=== PATIENT | female | born 1970 | race Caucasian/White ===

== ENCOUNTER → 2017-07-15 | Outpatient (CLI) | payer BC ==
--- NOTE | 2017-07-15 11:27 | US ---
EXAMINATION TYPE: US abdomen complete DATE OF EXAM: 07/15/2017 COMPARISON: NONE CLINICAL HISTORY: R10.11 RUQ PAIN. EXAM MEASUREMENTS: Liver Length: 10.7 cm Gallbladder Wall: 0.1 cm CBD: 0.5 cm Spleen: 9.7 cm Right Kidney: 12.9 x 4.1 x 5.9 cm Left Kidney: 12.5 x 5.3 x 5.1 cm Pancreas: wnl Liver: wnl Gallbladder: wnl Evidence for sonographic Rutherford's sign: no CBD: wnl Spleen: wnl Right Kidney: cyst measuring 2.8 x 1.8 x 2.5cm Left Kidney: wnl Upper IVC: wnl Abd Aorta: bifurcation obscured by overlying bowel gas, otherwise wnl The liver is homogenous. The intrahepatic portion of the IVC and proximal abdominal aorta are within normal limits. There is no evidence of cholelithiasis. Common bile duct is unremarkable. The visu alized portions of the pancreas are homogenous. The spleen is unremarkable. Kidneys are symmetric a nd free of hydronephrosis. Simple appearing cyst right kidney. No solid renal lesions. IMPRESSION: 1. Simple cyst left kidney. Otherwise unremarkable study.
== END | disposition home or self-care (01) ==
LOC: RADUSWWP 10:21
PROVIDERS: ATTEND Family Medicine
DX: N28.1 Cyst of kidney, acquired (principal)
CPT/HCPCS: 76700

== ENCOUNTER → 2017-07-24 | Outpatient (CLI) | payer BC ==
--- NOTE | 2017-07-24 10:24 | NM ---
EXAMINATION TYPE: NM hepatobiliary w EF DATE OF EXAM: 07/24/2017 COMPARISON: NONE HISTORY: Right upper quadrant pain TECHNIQUE: After the intravenous administration of 5.36 mCi Tc 99m Mebrofenin hepatobiliary scintigra phy is performed. Immediate images post injection. FINDINGS: There is satisfactory initial accumulation of tracer by the liver. The gallbladder is visualized wit hin 18 minutes. The small bowel activity is noted within 14 minutes. At one hour 8 ounces of oral e nsure plus is given to mimic CCK and gallbladder ejection fraction is calculated at 75 %, in the norm al range. Therefore there is no scintigraphic evidence of cystic or common bile duct obstruction to suggest acute cholecystitis or gallbladder dyskinesia. IMPRESSION: NORMAL NUCLEAR MEDICINE HEPATOBILIARY SCAN WITH EJECTION FRACTION CALCULATION.
== END | disposition home or self-care (01) ==
LOC: RADNMMAIN 06:56
PROVIDERS: ATTEND Family Medicine
DX: R10.11 Right upper quadrant pain (principal)
CPT/HCPCS: 78226; A9537

== ENCOUNTER → 2017-08-19 | Outpatient (CLI) | payer BC ==
--- NOTE | 2017-08-19 15:40 | US ---
EXAMINATION TYPE: US thyroid st tissue head/neck DATE OF EXAM: 08/19/2017 COMPARISON: 12/26/2015 CLINICAL HISTORY: E04.1 Thyroid Nodule. GLAND SIZE: Right Lobe: 4.7 x 1.4 x 1.4 cm Overall Parenchyma: homogenous Left Lobe: 5.7 x 2.4 x 3.2 cm Overall Parenchyma: heterogeneous Isthmus Thickness: 0.4 cm NODULES RIGHT: # of nodules measured on right: 0 LEFT: # of nodules measured on left: 1 1. 5.1 X 2.5 x 3.1 cm isoechoic solid nodule at the entire lobe pole with well-defined margins; . This nodule is wider than tall and shows intranodular vascularity. Prior size: 5.3 x 3.0 x 2.7 cm ISTHMUS: # of nodules measured in the isthmus: 0 Bilateral neck scanned, no evidence of lymphadenopathy. stable nodule IMPRESSION: Stable thyroid ultrasound
== END | disposition home or self-care (01) ==
LOC: RADUSWWP 15:03
PROVIDERS: ATTEND Family Medicine
DX: E04.1 Nontoxic single thyroid nodule (principal)
CPT/HCPCS: 76536

== ENCOUNTER 2018-10-02 12:19 | Observation (INO) | payer BC ==
--- NOTE | 2018-10-02 12:48 | ED ---
Chest Pain HPI - General Chief Complaint: Chest Pain Stated Complaint: CHEST PAIN Time Seen by Provider: 10/02/18 12:38 Source: patient, RN notes reviewed, old records reviewed Mode of arrival: wheelchair Limitations: no limitations - History of Present Illness Initial Comments: Patient is a 48-year-old female presents emergency department today with 1 week of episodes of chest pain. Patient reports that seems to be a dull ache symptoms times to be worsening. Patient reports it's gotten worse over the past 1-2 hours before arriving here. Patient has had no known fevers or chills. She reports a significant cough. Patient states that she has had some palpitations and feelings with the worse. Patient is a smoker. Family history of heart disease. She is not diabetic and takes no medication for high blood pressure. She states that she has no nausea or vomiting. She does report occasional tingling down the arm. This time she rates her pain a 1 out of 10. - Related Data Home Medications Medication Instructions Recorded Confirmed Ibuprofen [Motrin] 800 mg PO TID PRN 10/02/18 10/02/18 Allergies Allergy/AdvReac Type Severity Reaction Status Date / Time ceftriaxone [From Rocephin] Allergy Rash/Hives Verified 10/02/18 13:57 cephalexin [From Keflex] Allergy Rash/Hives Verified 10/02/18 13:57 Penicillins Allergy Rash/Hives Verified 10/02/18 13:57 adhesive AdvReac SEE Verified 10/02/18 13:57 COMMENTS Review of Systems ROS Statement: Those systems with pertinent positive or pertinent negative responses have been documented in the HPI. ROS Other: All systems not noted in ROS Statement are negative. EKG Findings - EKG Comments: EKG Findings:: EKG performed at 1250 shows R sinus rhythm with possible left atrial enlargement. Incomplete right bundle-branch block. Prolonged QT. Abnormal EKG noted. Ventricular rate of 84 bpm. MS interval is 166 ms. QRS duration 112 ms. QT QTc is 420/496 ms. No evidence of ST elevation or T-wave inversions. Past Medical History Past Medical History: No Reported History History of Any Multi-Drug Resistant Organisms: None Reported Additional Past Surgical History / Comment(s): LEEP, 2 rt knee 1 lt surgery, lumpectomy effie breast Past Psychological History: Anxiety Smoking Status: Current every day smoker Past Alcohol Use History: None Reported Past Drug Use History: None Reported General Exam - General Exam Comments Initial Comments: Patient is a 48-year-old female. Alert and oriented. Patient appears in no significant distress. General: Well appearing, well nourished, in no distress. Oriented x 3, normal mood and affect . Ambulating without difficulty. Skin: Good turgor, no rash, unusual bruising or prominent lesions Hair: Normal texture and distribution. HEENT: Head: Normocephalic, atraumatic, no visible or palpable masses, depressions, or scaring. Eyes: Visual acuity intact, conjunctiva clear, sclera non-icteric, EOM intact, PERRL. Ears: EACs clear, TMs translucent & cone of light visualized. hearing intact. Nose: No external lesions, mucosa non-inflamed, septum and turbinates normal Mouth: Mucous membranes moist, no mucosal lesions. Teeth/Gums: No obvious caries or periodontal disease. No gingival inflammation or significant resorption. Pharynx: Mucosa non-inflamed, no tonsillar hypertrophy or exudate Neck: Supple, without lesions, bruits, or adenopathy, thyroid non-enlarged and non-tender Heart: No cardiomegaly or thrills; regular rate and rhythm, no murmur or gallop Lungs: Clear to auscultation and percussion Abdomen: Bowel sounds normal, no tenderness, organomegaly, masses, or hernia Back: Spine normal without deformity or tenderness, no CVA tenderness Extremities: No amputations or deformities, cyanosis, edema or varicosities, peripheral pulses intact Musculoskeletal: Normal gait and station. No misalignment, asymmetry, crepitation, defects, tenderness, masses, effusions, decreased range of motion, instability, atrophy or abnormal strength or tone in the head, neck, spine, ribs , pelvis or extremities. Neurologic: CN 2-12 normal. Sensation to pain, touch, and proprioception normal. DTRs normal in upper and lower extremities. No pathologic reflexes. Psychiatric: Oriented X3, intact recent and remote memory, judgment and insight , normal mood and affect. Limitations: no limitations Course Vital Signs 10/02/18 10/02/18 10/02/18 12:28 12:44 12:47 Temperature 98.2 F Pulse Rate 89 82 Pulse Rate [ 82 Apical] Respiratory 18 18 Rate Blood Pressure 130/80 136/88 O2 Sat by Pulse 99 96 Oximetry 10/02/18 10/02/18 10/02/18 12:50 13:00 13:10 Temperature Pulse Rate 83 85 Pulse Rate [ Apical] Respiratory 22 20 Rate Blood Pressure 136/88 136/88 126/78 O2 Sat by Pulse 97 97 Oximetry 10/02/18 10/02/18 10/02/18 13:20 13:30 13:40 Temperature Pulse Rate 79 85 82 Pulse Rate [ Apical] Respiratory 16 20 20 Rate Blood Pressure 119/67 119/67 116/76 O2 Sat by Pulse 96 Oximetry 10/02/18 10/02/18 10/02/18 13:50 14:00 14:10 Temperature Pulse Rate 77 84 87 Pulse Rate [ Apical] Respiratory 7 L 20 18 Rate Blood Pressure 116/76 116/76 125/70 O2 Sat by Pulse 97 95 95 Oximetry 10/02/18 14:20 Temperature Pulse Rate 73 Pulse Rate [ Apical] Respiratory 18 Rate Blood Pressure 125/70 O2 Sat by Pulse 98 Oximetry Chest Pain MDM - MDM 48-year-old female, history of smoking, and family history of heart disease presents today with chest pain. She reports his been off and on for the past week. Worse over the past few hours prior to arrival. This time patient's EKG shows no significant changes. There is no ST changes. She also reports she's been having some L rotation. At this time patient's troponin and d-dimer and blood work was up so negative. Patient at this time was offered admission for further cardiology workup. Patient agrees to admission. Consult to cardiology. I discussed the case with Dr. Vasquez from [facility]. Chest x- rays negative for any acute process. Disposition Clinical Impression: Chest pain Disposition: ADMITTED IP TO THIS HOSP Condition: Stable Is patient prescribed a controlled substance at d/c from ED?: No Referrals: Chavez Tran MD [Primary Care Provider] - 1-2 days Time of Disposition: 14:44
[2018-10-02] MEDS ORDERED: SODIUM CHLORIDE 0.9% 1,000 ML IV ONE (12:59)
[2018-10-02 13:15] LABS: Basophils # (A) 0.1 k/uL (0-0.2); Basophils % (A) 1 %; Eosinophils # (A) 0.1 k/uL (0-0.7); Eosinophils % (A) 1 %; HGB 14.3 gm/dL (11.4-16.0); Lymphocytes # (A) 2.2 k/uL (1.0-4.8); Lymphocytes % (A) 28 %; MCH 30.2 pg (25.0-35.0); MCHC 32.4 g/dL (31.0-37.0); MCV 93.1 fL (80.0-100.0); Mean Platelet Volume 6.6; Monocytes # (A) 0.4 k/uL (0-1.0); Monocytes % (A) 5 %; Neutrophils # (A) 5.1 k/uL (1.3-7.7); Neutrophils % (A) 64 %; Platelet Count 236 k/uL (150-450); RBC 4.72 m/uL (3.80-5.40); RDW 13.4 % (11.5-15.5)
--- NOTE | 2018-10-02 13:18 | XR ---
EXAMINATION TYPE: XR chest 2V DATE OF EXAM: 10/02/2018 COMPARISON: NONE TECHNIQUE: PA and lateral views submitted. HISTORY: Chest pain FINDINGS: The lungs are clear and there is no pneumothorax, pleural effusion, or focal pneumonia. Hyperinflat ion suggests COPD. No overt failure. Hypertrophic change of the vertebral column. IMPRESSION: 1. No acute process.
[2018-10-02] MEDS: SODIUM CHLORIDE 0.9% 1,000 ML IV SCH ×2 (13:20→20:39)
[2018-10-02 13:25] LABS: ALT 20 U/L (9-52); AST 18 U/L (14-36); Alkaline Phosphatase 54 U/L (38-126); Amylase 46 U/L (30-110); Anion Gap 7 mmol/L; Blood Urea Nitrogen 9 mg/dL (7-17); Calcium 9.3 mg/dL (8.4-10.2); Carbon Dioxide 22 mmol/L (22-30); Chloride 109 mmol/L (98-107); Glucose 90 mg/dL (74-99); Lipase 35 U/L (23-300); Magnesium 1.8 mg/dL (1.6-2.3); Potassium 3.8 mmol/L (3.5-5.1); Sodium 138 mmol/L (137-145); Total Bilirubin 0.7 mg/dL (0.2-1.3); Total Protein 6.9 g/dL (6.3-8.2)
[2018-10-02 13:33] LABS: Creatine Kinase 119 U/L (30-135)
[2018-10-02 13:46] LABS: Troponin I <0.012 ng/mL (0.000-0.034)
[2018-10-02 13:49] LABS: D-Dimer 0.33 mg/L FEU (<0.60); Partial Thromboplastin Time 23.8 sec (22.0-30.0); Prothrombin Time 9.5 sec (9.0-12.0)
[2018-10-02 13:53] LABS: Creatine Kinase MB 0.3 ng/mL (0.0-2.4)
[2018-10-02] MEDS ORDERED: NITROGLYCERIN SL TABS 0.4 MG TAB SUBLINGUAL PRN (14:44)
[2018-10-02] MEDS ORDERED: IBUPROFEN 800 MG TAB PO PRN (14:48)
[2018-10-02] MEDS ORDERED: ACETAMINOPHEN TAB 325 MG TAB PO PRN (17:28)
[2018-10-02] MEDS ORDERED: LORazepam 0.5 MG TAB PO PRN (17:28)
[2018-10-02] MEDS ORDERED: NALOXONE 0.4 MG/ML 1 ML VIAL IV PRN (17:28)
[2018-10-02] MEDS ORDERED: MORPHINE SULFATE 2 MG/ML SYRINGE IV PRN (17:28)
--- NOTE | 2018-10-02 17:33 | P.HPIM ---
History of Present Illness H&P Date: 10/02/18 Chief Complaint: Chest pain 48-year-old female with PMH of asthma, goiter and anxiety presents to the ED for chest pain. Patient reports the chest pain started 1 week ago. Initially was intermittent but then became constant. Pain is left-sided, described as tightness and a "warm feeling" associated with palpitations. Her symptoms got progressively worse and intensified today prompting her to come to the ED. Pain is 1-2 out of 10 in severity at this time. Patient reports the pain radiating solid through to the back. Patient's dates that the pain is aggravated with anxiety and stress. There is no alleviating factors. Of note, patient also reports generalized fatigue and difficulty sleeping at this time. She is under multiple stressors at this time. Patient reports smoking 1-1-1/2 pack of cigarettes daily since 8 years old. She denies any alcohol or illicit drugs. She denies any headaches, lower extremity edema, nausea, vomiting, fever, shortness of breath, changes in urination or bowel habits. No changes in appetite or weight. In the ED, CBC was unremarkable. Coagulation panel was negative. CMP was unremarkable except for a chloride of 109. Initial troponin was less than 0.012 , EKG showing normal sinus rhythm with incomplete RBBB and prolonged QT. Chest x-ray is negative for acute process. Patient is admitted for chest pain, rule out acute coronary syndrome. Cardiology on consult. Review of Systems All systems: negative Past Medical History Past Medical History: No Reported History History of Any Multi-Drug Resistant Organisms: None Reported Additional Past Surgical History / Comment(s): LEEP, 2 rt knee 1 lt surgery, lumpectomy effie breast Past Psychological History: Anxiety Smoking Status: Current every day smoker Past Alcohol Use History: None Reported Past Drug Use History: None Reported Medications and Allergies Home Medications Medication Instructions Recorded Confirmed Type Ibuprofen [Motrin] 800 mg PO TID PRN 10/02/18 10/02/18 History Allergies Allergy/AdvReac Type Severity Reaction Status Date / Time ceftriaxone [From Rocephin] Allergy Rash/Hives Verified 10/02/18 13:57 cephalexin [From Keflex] Allergy Rash/Hives Verified 10/02/18 13:57 Penicillins Allergy Rash/Hives Verified 10/02/18 13:57 adhesive AdvReac SEE Verified 10/02/18 13:57 COMMENTS Physical Exam Vitals: Vital Signs Temp Pulse Pulse Resp BP Pulse Ox 10/02/18 15:50 71 16 113/82 10/02/18 15:40 87 28 H 113/82 10/02/18 15:30 24 125/76 10/02/18 15:20 125/76 10/02/18 15:10 75 17 125/76 93 L 10/02/18 15:00 75 12 127/83 98 10/02/18 14:50 75 13 127/83 94 L 10/02/18 14:40 71 13 127/83 95 10/02/18 14:30 77 15 125/70 98 10/02/18 14:20 73 18 125/70 98 10/02/18 14:10 87 18 125/70 95 10/02/18 14:00 84 20 116/76 95 10/02/18 13:50 77 7 L 116/76 97 10/02/18 13:40 82 20 116/76 10/02/18 13:30 85 20 119/67 10/02/18 13:20 79 16 119/67 96 10/02/18 13:10 126/78 10/02/18 13:00 85 20 136/88 97 10/02/18 12:50 83 22 136/88 97 10/02/18 12:47 82 10/02/18 12:44 82 18 136/88 96 10/02/18 12:28 98.2 F 89 18 130/80 99 Intake and Output 10/02/18 10/02/18 10/02/18 06:59 14:59 22:59 Other: Weight 65.771 kg General: [non toxic], [no distress], [appears at stated age] Derm: [warm], [dry] Head: [atraumatic], [normocephalic], [symmetric], [fullness of the neck] Eyes: [EOMI], [no lid lag], [anicteric sclera] Mouth: [no lip lesion], [mucus membranes moist] Cardiovascular: [S1S2 reg], [no murmur], [positive DP pulse bilateral], [ nontender chest] Lungs: [Decreased breath sounds bilaterally with slight wheezing in the left upper lung field], [no rhonchi, no rales] , [no accessory muscle use] Abdominal: [soft], [ nontender to palpation], [no guarding], [no appreciable organomegaly] Ext: [no gross muscle atrophy], [no edema], [no contractures] Neuro: [ CN II-XI grossly intact], [no focal neuro deficits] Psych: [Alert], [oriented], [appropriate affect] Results CBC & Chem 7: 10/02/18 12:56 10/02/18 12:56 Labs: Abnormal Lab Results - Last 24 Hours (Table) 10/02/18 Range/Units 12:56 Chloride 109 H (98-107) mmol/L Thrombosis Risk Factor Assmnt - Choose All That Apply Any of the Below Risk Factors Present?: Yes Each Factor Represents 1 point: Age 41-60 years Other Risk Factors: No Other congenital or acquired thrombophilia - If yes, enter type in comment: No Thrombosis Risk Factor Assessment Total Risk Factor Score: 1 Thrombosis Risk Factor Assessment Level: Low Risk Assessment and Plan Assessment: Assessment and Plan 1. Chest pain: Atypical but reports FH of congenital cardiac defects. Risk factors include smoking. Plan is to rule out ACS. Troponin < 0.012 x 1, EKG showing NSR with incomplete RBBB and prolonged QTc. CXR is negative. Continue ASA 325 mg PO QD. Nitrostat PRN. Pain management with Tylenol, Ibuprofen or Morphine IV. Telemetry monitoring. HEART healthy diet. Trend 2 Trop/EKG to r/o ACS. FU Lipid panel, Echocardiogram, Cardiology consult 2. Goiter: Palpable on physical exam. FU TSH/FT4 3. Anxiety: Does not take medications at home. Ativan 0.5 mg PO Q6H PRN for anxiety. 4. Probable COPD: Stable. DuoNeb QID PRN for SOB/wheezing. 5. DVT/GI Prophylaxis: Early mobilization. Plan to rule out acute coronary syndrome. Cardiology on consult. Likely discharge < 48H.
[2018-10-02 20:20] LABS: Creatine Kinase 101 U/L (30-135)
[2018-10-02 20:33] LABS: Creatine Kinase MB <0.2 ng/mL (0.0-2.4); Troponin I <0.012 ng/mL (0.000-0.034)
[2018-10-03 01:11] LABS: Creatine Kinase 89 U/L (30-135)
[2018-10-03 01:24] LABS: Creatine Kinase MB <0.2 ng/mL (0.0-2.4); Troponin I <0.012 ng/mL (0.000-0.034)
[2018-10-03] MEDS ORDERED: PANTOPRAZOLE 40 MG TABLET PO SCH (07:30)
[2018-10-03 08:03] VITALS: RESP 16
[2018-10-03] MEDS ORDERED: ASPIRIN 325 MG TAB PO SCH (09:00)
--- NOTE | 2018-10-03 11:28 | CONS ---
CONSULTATION Mrs. Alcantara is a 48-year-old female who is seen for cardiac evaluation. This patient has been having intermittent chest discomfort in the left precordial area. It is a dull aching symptoms which comes and goes. Nothing seems to worsen it. Patient has been having some nonproductive cough. These pains are not related to exertion. She is moderately active physically. There is no history of diabetes or hypertension. There is no family history of premature coronary artery disease. There is a history of cardiac arrhythmia and congenital heart disease. HOME MEDICATIONS: Include Motrin p.r.n. Patient is allergic to KEFLEX. PAST MEDICAL HISTORY: Includes a history of right knee surgery, lumpectomy, bilateral breast. History of anxiety. SOCIAL HISTORY: Patient is currently everyday smoker. PHYSICAL EXAMINATION: At present reveals a 48-year-old female who does not appear to be in any acute distress. In the emergency room, the patient was afebrile, oxygen saturation was 99%. Blood pressure was 130/80 mmHg. HEENT examination is negative. Neck is supple. There is no increase in jugular venous pressure. Both the carotid pulses are felt. There is no bruit. Chest is symmetrical. Heart, the PMI is not felt. First and second heart sounds are normal. There is no evidence of any murmur. Lungs are clinically clear to auscultation and percussion. Abdomen is soft. Liver and spleen are not enlarged. Bowel sounds are heard. Extremities, peripheral pulsations are 2+. There is no evidence of any edema or phlebitis. Neurological examination is grossly normal. EKG shows normal sinus rhythm with incomplete right bundle branch block pattern. Patient's LDL is 83, cholesterol is 143. Cardiac enzymes are normal. IMPRESSION: Clinically, this patient's symptoms are suggestive of atypical angina. EKGs and cardiac enzymes are normal. We will review the echocardiogram. Patient can be discharged home and he will be evaluated with a stress echo as an outpatient. MMODL / IJN: [id number] /
[2018-10-03 12:20] VITALS: BP 121/76; PULSE 68; TEMP 98.1
--- NOTE | 2018-10-03 13:34 | P.DS ---
Providers Date of admission: 10/02/18 15:09 Expected date of discharge: 10/03/18 Attending physician: Jacquie Ortiz MD Consults: 10/02/18 14:45 Consult Physician Urgent Consulting Provider: Rickey Ruggiero Consult Reason/Comments: Unstable angina Do you want consulting provider notified?: Yes Primary care physician: Chavez Tran - Discharge Diagnosis(es) (1) Goiter Current Visit: Yes Status: Acute (2) Anxiety Current Visit: Yes Status: Acute (3) COPD (chronic obstructive pulmonary disease) Current Visit: Yes Status: Acute (4) Chest pain Current Visit: Yes Status: Acute Hospital Course: 48-year-old female with PMH of asthma, goiter and anxiety presents to the ED for chest pain. Patient reports the chest pain started 1 week ago. Initially was intermittent but then became constant. Pain is left-sided, described as tightness and a "warm feeling" associated with palpitations. Her symptoms got progressively worse and intensified today prompting her to come to the ED. Pain is 1-2 out of 10 in severity at this time. Patient reports the pain radiating solid through to the back. Patient's dates that the pain is aggravated with anxiety and stress. There is no alleviating factors. Of note, patient also reports generalized fatigue and difficulty sleeping at this time. She is under multiple stressors at this time. Patient reports smoking 1-1-1/2 pack of cigarettes daily since 8 years old. She denies any alcohol or illicit drugs. She denies any headaches, lower extremity edema, nausea, vomiting, fever, shortness of breath, changes in urination or bowel habits. No changes in appetite or weight. In the ED, CBC was unremarkable. Coagulation panel was negative. CMP was unremarkable except for a chloride of 109. Initial troponin was less than 0.012. Chest x-ray is negative for acute process. Patient is admitted for chest pain, rule out acute coronary syndrome. Cardiology on consult. With regard to her chest pain, troponins were less than 0.0123 with EKG showing normal sinus rhythm with incomplete RBBB and prolonged QT. Cardiology was consulted at this time an echocardiogram was ordered. Lipid panel is unremarkable. Patient was seen and examined prior to discharge. No acute events overnight. No more chest pain, SOB or palpitations. She has no complaints today. Patient looking forward to going home. General: [non toxic], [no distress], [appears at stated age] Derm: [warm], [dry] Head: [atraumatic], [normocephalic], [symmetric], [fullness of the neck] Eyes: [EOMI], [no lid lag], [anicteric sclera] Mouth: [no lip lesion], [mucus membranes moist] Cardiovascular: [S1S2 reg], [no murmur], [positive DP pulse bilateral], [ nontender chest] Lungs: [Decreased breath sounds bilaterally with slight wheezing in the left upper lung field], [no rhonchi, no rales] , [no accessory muscle use] Abdominal: [soft], [ nontender to palpation], [no guarding], [no appreciable organomegaly] Ext: [no gross muscle atrophy], [no edema], [no contractures] Neuro: [no focal neuro deficits] Psych: [Alert], [oriented], [appropriate affect] Assessment and Plan 1. Chest pain: Atypical but reports FH of congenital cardiac defects. Risk factors include smoking. Plan is to rule out ACS. Troponin < 0.012 x 3, EKG showing NSR with incomplete RBBB and prolonged QTc. CXR is negative. Continue ASA 325 mg PO QD. Nitrostat PRN. Pain management with Tylenol, Ibuprofen or Morphine IV. Telemetry monitoring. HEART healthy diet. Lipid panel unremarkable. Cardiology consulted - recommended FU Echocardiogram and outPT stress test. 2. Goiter: Palpable on physical exam. TSH is within normal limits. FU outPT. 3. Anxiety: Does not take medications at home. Ativan 0.5 mg PO Q6H PRN for anxiety. 4. Probable COPD: Stable. DuoNeb QID PRN for SOB/wheezing. 5. DVT/GI Prophylaxis: Early mobilization. Pertinent Studies: Echo CXR Patient Condition at Discharge: Stable Plan - Discharge Summary Discharge Rx Participant: Yes New Discharge Prescriptions: Continue Ibuprofen [Motrin] 800 mg PO TID PRN PRN Reason: Pain Discharge Medication List Ibuprofen [Motrin] 800 mg PO TID PRN 10/02/18 [History] Follow up Appointment(s)/Referral(s): Chavez Tran MD [Primary Care Provider] - 1-2 days Alfredito Rivero MD [STAFF PHYSICIAN] - 1 Week Activity/Diet/Wound Care/Special Instructions: Diet: Regular diet. Please follow-up with your primary care provider within 1-2 days of discharge. Please follow up with your Full Time Staff Interpreter Dr. Rivero within 1 week of discharge. Note to PCP: Please order and follow up with a stress test for this patient. Discharge Disposition: HOME SELF-CARE Pending Studies Pending Results: Patient will need to get a stress test through her PCP.
--- NOTE | 2018-10-03 15:45 | ECHOF ---
Referral Reason:Chest pain MEASUREMENTS -------- HEIGHT: 162.6 cm WEIGHT: 65.8 kg BP: 95/57 RVIDd: 2.9 cm (< 3.3) IVSd: 1.0 cm (0.6 - 1.1) LVIDd: 5.3 cm (3.9 - 5.3) LVPWd: 1.0 cm (0.6 - 1.1) IVSs: 1.2 cm LVIDs: 3.6 cm LVPWs: 1.2 cm LA Diam: 3.3 cm (2.7 - 3.8) LAESV Index (A-L): 33.93 ml/m Ao Diam: 3.1 cm (2.0 - 3.7) AV Cusp: 2.2 cm (1.5 - 2.6) LA Diam: 3.2 cm (2.7 - 3.8) EPSS: 0.6 cm MV E [facility]: 0.89 m/s MV DecT: 206 ms MV A [facility]: 0.93 m/s MV E/A Ratio: 0.96 RAP: 15.00 mmHg RVSP: 20.47 mmHg MV EF SLOPE: 142.03 mm/s (70 - 150) MV EXCURSION: 2.12 cm (> 18.000) FINDINGS -------- Sinus rhythm. This was a technically good study. The left ventricular size is normal. Left ventricular wall thickness is normal. Overall left vent ricular systolic function is normal with, an EF between 55 - 60 %. The right ventricle is normal in size and function. LA is midly dilated 29-33ml/m2. The right atrium is normal in size. The aortic valve is trileaflet, and appears structurally normal. No aortic stenosis or regurgitation. The mitral valve leaflets are mildly thickened. There is trace to mild mitral regurgitation. Trace tricuspid regurgitation present. Right ventricular systolic pressure is normal at < 35 mmHg. There is no evidence of pulmonary hypertension. Trace/mild (physiologic) pulmonic regurgitation. The aortic root size is normal. The inferior vena cava is dilated with poor inspiratory collapse which is consistent with estimated r ight atrial pressure of 20 mmHg. There is no pericardial effusion. CONCLUSIONS -------- 1. Sinus rhythm. 2. This was a technically good study. 3. The left ventricular size is normal. 4. Left ventricular wall thickness is normal. 5. Overall left ventricular systolic function is normal with, an EF between 55 - 60 %. 6. LA is midly dilated 29-33ml/m2. 7. The aortic valve is trileaflet, and appears structurally normal. No aortic stenosis or regurgitati on. 8. The mitral valve leaflets are mildly thickened. 9. There is trace to mild mitral regurgitation. 10. Trace tricuspid regurgitation present. 11. Right ventricular systolic pressure is normal at < 35 mmHg. 12. There is no evidence of pulmonary hypertension. 13. Trace/mild (physiologic) pulmonic regurgitation. 14. The aortic root size is normal. 15. The inferior vena cava is dilated with poor inspiratory collapse which is consistent with estimat ed right atrial pressure of 20 mmHg. 16. There is no pericardial effusion. GROUNDS RESTORATION SPECIALIST: Israel Valderrama RDCS
== END 2018-10-03 15:53 | disposition home or self-care (01) ==
LOC: EC 12:19 → 1SOBS 15:09
PROVIDERS: ADMIT Family Medicine; ATTEND Family Medicine
DX: R07.89 Other chest pain (principal); F41.9 Anxiety disorder, unspecified; I45.10 Unspecified right bundle-branch block; I45.81 Long QT syndrome; E04.9 Nontoxic goiter, unspecified; G47.9 Sleep disorder, unspecified; F17.210 Nicotine dependence, cigarettes, uncomplicated; Z88.0 Allergy status to penicillin; Z88.1 Allergy status to other antibiotic agents; Z91.048 Other nonmedicinal substance allergy status; Z82.49 Family history of ischemic heart disease and other diseases of the circulatory system; J44.9 Chronic obstructive pulmonary disease, unspecified
CPT/HCPCS: 93005 ×2; 96360; 99285; 36415; 93306; 85379; 80061; 80053; 84443; 82150; 82550 ×2; 82553 ×2; 83690; 83735; 84484 ×2; 85025; 85610; 85730; 71046; G0378 ×2

== ENCOUNTER → 2018-10-19 | Outpatient (CLI) | payer BC ==
--- NOTE | 2018-10-19 10:40 | EST ---
EXERCISE STRESS DATE OF SERVICE: 10/19/2018 AGE: 48 SEX: Female HT: 5'4" WT: 145 PROTOCOL: Kapil STAGE: III DURATION OF EXERCISE: 9 minutes HEART RATE REST: 93 BLOOD PRESSURE REST: 120/72 MAXIMUM HEART RATE ACHIEVED: 145 MAXIMUM BLOOD PRESSURE: 121/78 85% MPHR: 145 100% MPHR: 171 METS: 10.5 INDICATIONS: Chest pain. CLINICAL INFORMATION: Baseline rhythm is a sinus mechanism, rate of 93, normal intervals, minor nonspecific ST-T wave changes. Baseline blood pressure 120/72 mmHg. Patient exercised on Kapil protocol for 9 minutes reaching peak rate 145 beats per minute which is equal to 85% maximum predicted heart rate. Peak blood pressure 121/78 mmHg. Test was terminated secondary to fatigue. There was no chest pain. Electrocardiographic monitoring revealed no evidence of diagnostic ischemic ST deviation. CONCLUSION: 1. Average exercise tolerance with normal electrocardiograph response to exercise. 2. hypotensive response to exercise with inability to augment her blood pressure during exercise of unclear etiology. 3. There was no evidence of significant arrhythmia. MMODL / IJN: [id number] / MTDD
== END | disposition home or self-care (01) ==
LOC: RADNMMAIN 09:05
PROVIDERS: ATTEND Family Medicine
DX: R07.89 Other chest pain (principal)
CPT/HCPCS: 93017

== ENCOUNTER → 2019-08-17 | Outpatient (CLI) | payer BC ==
--- NOTE | 2019-08-18 08:39 | MM ---
Reason for exam: clinical finding. Last mammogram was performed 3 years and 9 months ago. History: Benign excisional biopsy of the right breast, 2007. Benign excisional biopsy of the left breast, 1989. Indicated problem(s): pain in the left breast. Physical Findings: Nurse Summary: 2cm nodule in the left breast at 2 o'clock and a 1cm nodule in the left breast at 4 o'clock (nurse dw). MG 3D Diag Mammo W/Cad PAULINO Bilateral CC and MLO view(s) were taken. Prior study comparison: November 21, 2015, left breast MG 3d diag mammo w/cad LT. May 04, 2015, bilateral MG diagnostic mammo w CAD PAULINO. The breast tissue is heterogeneously dense. This may lower the sensitivity of mammography. There are 3 groups of right calcifications. Right upper outer quadrant far posterior depth measures 5mm. Right lower outer quadrant 2.5mm group at anterior depth and 3mm group in the upper inner quadrant on the right. These all appear heterogeneous on magnification views. Left upper outer quadrant calcifications span and are heterogenous. New from the prior. However these layer on ML compatible with benign milk of calcium. These results were verbally communicated with the patient and result sheet given to the patient on 08/17/19. ASSESSMENT: Incomplete: need additional imaging evaluation, BI-RAD 0 RECOMMENDATION: Ultrasound of both breasts. (left lateral, right upper outer quadrant)
--- NOTE | 2019-08-18 08:46 | USB ---
Reason for exam: additional evaluation requested from abnormal screening. History: Benign excisional biopsy of the right breast, 2007. Benign excisional biopsy of the left breast, 1989. US Breast Limited BILAT Right limited breast ultrasound including focal area of concern, retroareolar and axilla demonstrates a 0.3 x 0.3 x 0.3cm oval, cystic lesion at 9 o'clock, a 0.3 x 0.3 x 0.2cm oval, cystic, complex lesion at 9 o'clock, a 0.4 x 0.4 x 0.3cm oval, cluster, cystic, complex lesion at 11 o'clock and a 1.9 x 1.5 x 0.8cm lymph node at the axilla. Left limited breast ultrasound including focal area of concern, retroareolar and axilla demonstrates a 0.5 x 0.3 x 0.2cm oval, cystic lesion at 1 o'clock, a 1.3 x 1.1 x 0.9cm largest oval, cystic lesion at 2 o'clock BB, a 1.6 x 0.9 x 0.5cm clustered lesion at 4 o'clock BB, a 0.4 x 0.7 x 0.5cm lesion at the posterior nipple and a 0.3 x 0.3 x 0.3cm simple cyst at 3 o'clock. No suspicious sonographic finding. These results were verbally communicated with the patient and result sheet given to the patient on 08/17/19. ASSESSMENT: Suspicious, BI-RAD 4 RECOMMENDATION: Stereotactic core biopsy of the right breast. (x 2. Right breast calcifications of the most posterior and anterior groups. Third group recommendation will be made after biopsy) Called with mammographic findings and has scheduled an appointment for the patient for 08/18/19 at 11:[address] Tran. PRELIMINARY REPORT CALLED AND FAXED TO DR. TRAN ON 08/18/19.
== END | disposition home or self-care (01) ==
LOC: RADMAMWWP 13:07
PROVIDERS: ATTEND Family Medicine
DX: R92.8 Other abnormal and inconclusive findings on diagnostic imaging of breast (principal)
CPT/HCPCS: 77062; 77066

== ENCOUNTER → 2019-09-06 | Day surgery (SDC) | payer BC ==
[2019-09-06 10:25] VITALS: RESP 16; BMI 25.1
[2019-09-06 13:05] VITALS: BP 112/68; PULSE 80; TEMP 98.1
--- NOTE | 2019-09-06 15:15 | MM ---
EXAMINATION TYPE: MG stereo VAD BX addl RT, MG stereo VAD BX RT DATE OF EXAM: 09/06/2019 COMPARISON: Diagnostic mammogram dated 08/17/2019 CLINICAL HISTORY: Indeterminate right breast calcifications for which 2 site stereotactic guided biopsy was recommended. TECHNIQUE: Stereotactic guided core biopsy of right breast. FINDINGS: The procedure of stereotactic guided core biopsy was explained to the patient. Benefits, alternatives, and risks were discussed. An informed consent was then obtained. Site A (anterior) The shortness pathway for biopsy was chosen. Shortness pathway was lateral medial approach. Preprocedural localization images were obtained of calcifications in the upper outer quadrant of the right breast at anterior to mid depth. Coordinates were calculated. Subsequently 7 cc of lidocaine without epinephrine was utilized to anesthetize the skin and deeper subcutaneous soft tissues. The needle was advanced to the appropriate depth. Postfire injection of 7 cc of lidocaine with epinephrine was utilized to anesthetize the site of biopsy. Postfire images were obtained to ensure no movement of the calcifications after instillation of additional anesthetic. A vacuum assisted biopsy gun was used to obtain 7 core samples. Secure alycia was placed. Site B (posterior) The shortness pathway for biopsy was chosen. Shortness pathway was lateral to medial approach. Preprocedural localization images were obtained and a calcifications in the upper outer quadrant of the right breast at posterior depth. Coordinates were calculated. Subsequently 7 cc of lidocaine without epinephrine was utilized to anesthetize the skin and deeper subcutaneous soft tissues. The needle was advanced to the appropriate depth. Prefire images were obtained ensuring appropriate location. Postfire injection of 7 cc of lidocaine with epinephrine was utilized to anesthetize the site of biopsy. Postfire images were obtained to ensure no movement of the calcifications after instillation of additional anesthetic. A vacuum assisted biopsy gun was used to obtain 12 core samples. Try alycia was placed. The patient tolerated the procedure well without any immediate complication. The patient was kept in the radiology department for short stay after the procedure and then discharged home in stable condition. Targeted calcifications are identified in both specimen mammograms. Post biopsy mammogram shows the first biopsy marker to be located appropriately with postbiopsy change at the site of the second biopsy marker and absence of the targeted calcifications on the postprocedural mammogram however the biopsy marker appears absent and migrated through the skin tract. If needle localization is necessary magnification views of the recommended to assess for residual calcifications. IMPRESSION: SUCCESSFUL, UNCOMPLICATED STEREOTACTIC GUIDED CORE BIOPSY OF 2 SITES OF INDETERMINATE CALCIFICATIONS WITHIN THE RIGHT BREAST, SOME OF THE MOST ANTERIOR AND MOST POSTERIOR GROUPS, FULL PATHOLOGY RESULTS TO FOLLOW. ADDITIONAL EVALUATION OF OTHER RIGHT BREAST CALCIFICATIONS WOULD BE NECESSARY IF PATHOLOGY RESULTS ARE MALIGNANT. OTHERWISE SIX-MONTH FOLLOW-UP WOULD BE RECOMMENDED. Pathology Results: Benign A. RIGHT BREAST, SITE A, ANTERIOR, STEREOTACTIC CORE BIOPSY: Fibrocystic changes including fibrosis, cysts, columnar cell change and rare microcalcifications. B. RIGHT BREAST, SITE B, POSTERIOR, STEREOTACTIC CORE BIOPSY: Fibrocystic changes including sclerosing adenosis with calcifications, cysts, fibrosis and columnar cell change. Recommendation Follow up mammogram of the right breast in 6 months. [facility]
== END ==
LOC: RADMAMWWP 09:34
PROVIDERS: ATTEND Family Medicine
DX: N60.11 Diffuse cystic mastopathy of right breast (principal); R92.0 Mammographic microcalcification found on diagnostic imaging of breast; N60.21 Fibroadenosis of right breast; R92.8 Other abnormal and inconclusive findings on diagnostic imaging of breast; R92.1 Mammographic calcification found on diagnostic imaging of breast; N60.31 Fibrosclerosis of right breast; Z88.1 Allergy status to other antibiotic agents; Z88.0 Allergy status to penicillin
CPT/HCPCS: 88305; 19081; 19082; A4648; J2001

== ENCOUNTER → 2020-09-19 | Outpatient (CLI) | payer BC ==
--- NOTE | 2020-09-20 10:07 | US ---
EXAMINATION TYPE: US thyroid st tissue head/neck DATE OF EXAM: 09/19/2020 COMPARISON: US 08/19/2017 CLINICAL HISTORY: E04.1 SINGLE THYROID NODULE. GLAND SIZE: Right Lobe: 5.3 x 1.5 x 1.5 cm Overall Parenchyma: homogenous Left Lobe: 5.8 x 2.3 x 3.1 cm Overall Parenchyma: heterogeneous Isthmus Thickness: 0.5 cm NODULES RIGHT: # of nodules measured on right: 1 1. 0.6 X 0.6 x 0.5 cm isoechoic solid nodule at the mid pole with poorly defined margins. This nod ule is wider than tall and shows intranodular vascularity. Prior size: not measured on prior LEFT: # of nodules measured on left: 1 1. 5.1 X 2.1 x 2.9 cm isoechoic solid nodule at the mid pole with well-defined margins. This nodul e is wider than tall and shows intranodular vascularity. Prior size: 5.1 x 2.5 x 3.1 cm ISTHMUS: # of nodules measured in the isthmus: 0 Bilateral neck scanned, no evidence of lymphadenopathy. IMPRESSION: Stable large left thyroid lobe nodule
--- NOTE | 2020-09-21 11:18 | MM ---
Reason for exam: additional evaluation requested from prior study. Last mammogram was performed 1 year and 1 month ago. History: Benign MG stereo VAD BX addl RT of the right breast, September 06, 2019. Benign MG stereo VAD BX RT of the right breast, September 06, 2019. Benign excisional biopsy of the right breast, 2007. Benign excisional biopsy of the left breast, 1989. Physical Findings: Nurse Summary: 1.5cm nodule in the left breast at 2 o'clock (nurse carlos). MG 3D Diag Mammo W/Cad PAULINO Bilateral CC and MLO view(s) were taken. Prior study comparison: August 17, 2019, bilateral MG 3d diag mammo w/cad PAULINO. November 21, 2015, left breast MG 3d diag mammo w/cad LT. The breast tissue is heterogeneously dense. This may lower the sensitivity of mammography. Finding #1: There is a 30 mm circumscribed oval mass in the upper outer quadrant, middle, posterior position of the left breast. Finding #2: There are coarse heterogeneous, regional calcifications in the left breast. Previous mammotome biopsy in the right breast. There is no discrete abnormality. Increase in size and increase in number of calcifications since August 17, 2019 and November 21, 2015. These results were verbally communicated with the patient and result sheet given to the patient on 09/19/20. ASSESSMENT: Incomplete: need additional imaging evaluation, BI-RAD 0 RECOMMENDATION: Ultrasound of the left breast.
--- NOTE | 2020-09-21 11:22 | USB ---
Reason for exam: additional evaluation requested from abnormal screening. History: Benign MG stereo VAD BX addl RT of the right breast, September 06, 2019. Benign MG stereo VAD BX RT of the right breast, September 06, 2019. Benign excisional biopsy of the right breast, 2007. Benign excisional biopsy of the left breast, 1989. US Breast Limited LT Left limited breast ultrasound including focal area of concern, retroareolar and axilla demonstrates a 1.2 x 0.9 x 1.1cm oval, cystic lesion at 2 o'clock. These results were verbally communicated with the patient and result sheet given to the patient on 09/19/20. ASSESSMENT: Suspicious, BI-RAD 4 RECOMMENDATION: Stereotactic core biopsy of the left breast. (calcifications on mammogram) Called Dr. Tran's office with mammographic findings. Biopsy scheduled for 10/11/20 at 8:00. PRELIMINARY REPORT CALLED AND FAXED TO DR. TRAN ON 09/21/20.
== END | disposition home or self-care (01) ==
LOC: RADMAMWWP 15:04
PROVIDERS: ATTEND Family Medicine
DX: R92.8 Other abnormal and inconclusive findings on diagnostic imaging of breast (principal); E04.1 Nontoxic single thyroid nodule
CPT/HCPCS: 76536; 77062; 77066

== ENCOUNTER → 2020-10-25 | Outpatient (CLI) | payer BC ==
--- NOTE | 2020-10-25 11:40 | US ---
EXAMINATION TYPE: US abdomen complete DATE OF EXAM: 10/25/2020 COMPARISON: US dated 07/15/2017 CLINICAL HISTORY: RUQ pain, Abdominal pain. Nausea, umbilical hernia per patient EXAM MEASUREMENTS: Liver Length: 17.7 cm Gallbladder Wall: 0.2 cm CBD: 0.5 cm Spleen: 9.4 cm Right Kidney: 12.9 x 6.9 x 4.5 cm Left Kidney: 12.4 x 5.7 x 5.5 cm Pancreas: wnl Liver: wnl Gallbladder: wnl Evidence for sonographic Rutherford's sign: no CBD: wnl Spleen: wnl Right Kidney: lateral upper pole renal cyst noted = 2.2 x 2.3 x 1.8cm with similar appearance to ama or exam Left Kidney: wnl Upper IVC: wnl Abd Aorta: size is wnl, intimal thickening is noted distally Umbilical hernia is imaged. IMPRESSION: Essentially stable right renal cyst
== END | disposition home or self-care (01) ==
LOC: RADUSWWP 07:17
PROVIDERS: ATTEND Family Medicine
DX: N28.1 Cyst of kidney, acquired (principal)
CPT/HCPCS: 76700

== ENCOUNTER → 2020-11-01 | Day surgery (SDC) | payer BC ==
[2020-11-01 07:24] VITALS: RESP 16; TEMP 98.6
[2020-11-01 09:11] VITALS: BP 116/72; PULSE 79
--- NOTE | 2020-11-09 11:21 | MM ---
EXAMINATION TYPE: MG stereo VAD BX LT DATE OF EXAM: 11/01/2020 COMPARISON: Mammogram 09/19/2020, ultrasound 09/19/2020 CLINICAL HISTORY: Abnormal mammogram TECHNIQUE: Stereotactic guided core biopsy of left breast. FINDINGS: The procedure of stereotactic guided core biopsy was explained to the patient. Benefits, alternatives, and risks were discussed. An informed consent was then obtained. The skin overlying a suitable path to the calcifications was localized using the stereotactic unit, the skin was prepped and draped. Lidocaine was used for local anesthesia. A vacuum assisted biopsy gun was used to obtain multiple core samples. The patient tolerated the procedure well without any immediate complication. The patient was kept in the radiology department for short stay after the procedure and then discharged home in stable condition. Targeted calcifications are identified in specimen mammogram. Post biopsy digital mammogram shows the clip to appear in satisfactory position relative to the targeted area of concern on the preprocedure images. IMPRESSION: SUCCESSFUL, UNCOMPLICATED STEREOTACTIC GUIDED CORE BIOPSY OF AREA OF CONCERN IN THE left BREAST, FULL PATHOLOGY RESULTS TO FOLLOW. This procedure performed by the undersigned. Pathology Results: Benign LEFT BREAST, STEREOTACTIC CORE BIOPSY: Proliferative fibrocystic changes including cysts with intraluminal calcifications and focal features of cyst rupture, moderate to florid usual type ductal hyperplasia, fibrosis, apocrine metaplasia and columnar cell change. Recommendation Follow up mammogram of the left breast in 6 months. [facility]
== END ==
LOC: RADMAMWWP 07:09
PROVIDERS: ATTEND Family Medicine
DX: N60.12 Diffuse cystic mastopathy of left breast (principal); R92.1 Mammographic calcification found on diagnostic imaging of breast; N62 Hypertrophy of breast; N60.82 Other benign mammary dysplasias of left breast; R92.8 Other abnormal and inconclusive findings on diagnostic imaging of breast; Z88.1 Allergy status to other antibiotic agents; Z88.0 Allergy status to penicillin; Z91.09 Other allergy status, other than to drugs and biological substances
CPT/HCPCS: 19081; 88305; A4648; J2001

== ENCOUNTER → 2022-03-28 | Outpatient (CLI) | payer BC ==
[~2022-03-28] MED LIST: BEBTELOVIMAB (EUA) 175 MG/2 ML VIAL IV ONE; SODIUM CHLORIDE 0.9% 500 ML 500 ML in EMPTY BAG 1 BAG IV PRN
[2022-03-28 12:46] VITALS: TEMP 98.3
[2022-03-28 13:25] VITALS: BP 115/70; PULSE 75; RESP 16
== END ==
LOC: PROCWHC3 12:29
PROVIDERS: ATTEND Physician Assistant Medical
DX: U07.1 COVID-19 (principal); Z28.310 Unvaccinated for COVID-19; Z88.0 Allergy status to penicillin; Z91.048 Other nonmedicinal substance allergy status; Z88.1 Allergy status to other antibiotic agents; F17.200 Nicotine dependence, unspecified, uncomplicated
CPT/HCPCS: 96374; Q0222; M0222

== ENCOUNTER → 2023-05-16 | Outpatient (CLI) | payer BC ==
--- NOTE | 2023-05-16 11:26 | CT ---
EXAMINATION TYPE: CT abdomen pelvis wo con DATE OF EXAM: 05/16/2023 COMPARISON: None HISTORY: 52-year-old female R10.32, flank pain, Renal stone CT DLP: 256.20 mGycm. Automated exposure control for dose reduction was used. TECHNIQUE: Contiguous axial scanning of the abdomen and pelvis without IV contrast. Coronal and sagit mirlande reconstructions performed. FINDINGS: LUNG BASES: No significant abnormality is appreciated. LIVER/GB: Enlarged up to 21.0 cm, probably due to the presence of a French's lobe. Tiny 1 mm cyst lef t liver lobe. No abnormal gallbladder distention. PANCREAS: No significant abnormality is seen. SPLEEN: No significant abnormality is seen. ADRENALS: No significant abnormality is seen. KIDNEYS: There is a punctate 1 mm calculus mid right kidney, coronal image 35. There is a 2.1 cm mark ical hypodensity mid right kidney suggestive of a cyst. No hydronephrosis on either side. BOWEL: Moderate stool in the right side of the abdomen. Normal appendix. No pericolonic inflammatory change. No dilated small bowel or free air. LYMPH NODES: No significant abnormality is seen. OTHER: No significant abnormality is seen. PELVIS: Bladder shows no gross abnormal body. Uterus anteverted. There are numerous pelvic phlebolith s. Both ovaries are visualized but not assessed in detail due to lack of contrast and crowded bowel. Mild pelvic free fluid likely physiologic. BONES: Moderate degenerative disc disease L5-S1. IMPRESSION: 1. Punctate 1 mm calculus mid right kidney. No obstructing calculus or hydronephrosis is identified on either side. 2. Incidental 2.1 cm hypodense lesion mid right kidney, likely a benign cyst. 3. Mild pelvic free fluid likely physiologic. 4. Moderate stool in the right side of the colon.
== END | disposition home or self-care (01) ==
LOC: RADCTMAIN 10:21
PROVIDERS: ATTEND Family Medicine
DX: N20.0 Calculus of kidney (principal); R19.5 Other fecal abnormalities
CPT/HCPCS: 74176

== ENCOUNTER → 2023-07-09 | Outpatient (CLI) | payer BC ==
--- NOTE | 2023-07-09 15:27 | US ---
EXAMINATION TYPE: US carotid duplex BILAT DATE OF EXAM: 07/09/2023 COMPARISON: NONE CLINICAL INDICATION: Female, 52 years old with history of E78.5 HYPERLIPIDEMIA, UNSPECIFIED; Hyperlip idemia TECHNIQUE: Carotid duplex ultrasound examination. Indirect Doppler criteria was utilized. FINDINGS: EXAM MEASUREMENTS: RIGHT: Peak Systolic Velocity (PSV) cm/sec ----- Right CCA: 79.8 ----- Right ICA: 98.5 ----- Right ECA: 106.9 ICA/CCA ratio: 1.2 RIGHT: End Diastole cm/sec ----- Right CCA: 38.0 ----- Right ICA: 46.8 ----- Right ECA: 28.0 LEFT: Peak Systolic Velocity (PSV) cm/sec ----- Left CCA: 110.6 ----- Left ICA: 110.8 ----- Left ECA: 100.4 ICA/CCA ratio: 1.0 LEFT: End Diastole cm/sec ----- Left CCA: 43.1 ----- Left ICA: 51.2 ----- Left ECA: 28.0 VERTEBRALS (direction of flow): Right Vertebral: Antegrade Left Vertebral: Antegrade Rhythm: Normal DIGITAL COURT REPORTER NOTES: No significant stenosis seen IMPRESSION: No significant flow limiting stenosis. Criteria for Assigning % of Stenosis / Diameter reduction (Estimation based on the indirect measurements of the internal carotid artery velocities (ICA PSV). 1. Normal (no stenosis)=ICA PSV < 125 cm/s: ratio < 2.0: ICA EDV<40 cm/s. 2. Less than 50% stenosis=ICA PSV < 125 cm/s: ratio < 2.0: ICA EDV<40 cm/s. 3. 50 to 69% stenosis=ICA PSV of 125 to 230 cm/s: ration 2.0 ? 4.0: ICA EDV 40-100 cm/s. 4. Greater than 70% stenosis to near occlusion= ICA PSV > 230 cm/s: ratio > 4.0: ICA EDV > 100 cm/s. 5. Near occlusion= ICA PSV velocities may be low or undetectable: variable ratio and ICA EDV. 6. Total occlusion=unable to detect flow.
== END | disposition home or self-care (01) ==
LOC: RADUSWWP 11:19
PROVIDERS: ATTEND Family Medicine
DX: E78.5 Hyperlipidemia, unspecified (principal)
CPT/HCPCS: 93880

== ENCOUNTER 2023-07-10 13:01 | Day surgery (SDC) | payer BC ==
[2023-07-10 13:16] VITALS: BP 114/61; PULSE 87; RESP 16; TEMP 98.7
--- NOTE | 2023-07-10 14:32 | US ---
ULTRASOUND GUIDED FNA THYROID BIOPSY: CLINICAL HISTORY: Request for left thyroid dominant nodule FNA measuring approximately 5.3 cm. FINDINGS: The procedure was explained to the patient. The risks, complications, benefits and alternatives were discussed and any questions were answered. Informed consent was obtained. Patient was placed supin e on the ultrasound table and prepped and draped in the usual sterile fashion. Utilizing a 25 gauge needle, five passes were made into the requested left thyroid nodule. Patient was stable throughout the procedure. Pathology is pending. All elements of maximal barrier technique were utilized. IMPRESSION: 1. Successful ultrasound guided FNA thyroid biopsy.
== END 2023-07-10 14:00 | disposition home or self-care (01) ==
LOC: RADPROMAIN 13:01
PROVIDERS: ATTEND Family Medicine
DX: E04.1 Nontoxic single thyroid nodule (principal)
CPT/HCPCS: 10005; 88173; 88305